=== PATIENT | male | born 1960 | race Caucasian/White ===

== ENCOUNTER 2016-10-10 17:25 | Emergency (ER) | payer OTHER ==
[~2016-10-10] VITALS: Ht 170.2 cm; Wt 88.3 kg
[~2016-10-10 17:25] MED LIST: ACAMPROSATE CA333 MG PO; ACETAMINOP160 MG/51 PO; ATARAX,VISTARIL25 MG PO; AUGMENTIN875 MG PO; GEODON40 MG PO; K-DUR20 MEQ PO; KEFLEX500 MG PO; LEVOTHYROXINE75 MCG PO; LEVOTHYROXINE88 MCG PO; NICOTINE PATCH1 EAC2 TD; NORVASC5 MG PO; PAROXETINE HCL20 MG PO; PAXIL20 MG PO; PAXIL40 MG PO; PRED FORTE100 DROP/5 RIGHT EYE; RISPERDAL1 MG PO; TOBRADEX EYE DRO5 ML RIGHT EYE; XALATAN2.5 ML RIGHT EYE; ZYPREXA PO
[2016-10-10 18:47] LABS: HEMATOCRIT 35.6 % (38.0-50.0); MCH 28.9 PG (29.0-34.0); MCHC 35.1 G/DL (30.0-36.0); MCV 82.4 FL (86-99); MEAN PLAT.VOLUME 9.4 uM^3 (9.0-12.4); PLATELET COUNT 181 K/uL (156-360); RBC DIS.WIDTH-CV 12.9 % (11.8-14.6); RED BLOOD COUNT 4.32 M/uL (4.00-5.50); WHITE BLOOD COUNT 7.4 K/uL (4.1-10.2)
[2016-10-10 18:59] LABS: CHLORIDE 106 mEq/L (99-109); POTASSIUM 3.7 mEq/L (3.7-5.4); SODIUM 139 mEq/L (136-147)
[2016-10-10 19:00] LABS: GLUCOSE 87 mg/dL (70-99)
[2016-10-10 19:02] LABS: ANION GAP 11 MEQ/L (2-14)
[2016-10-10 19:04] LABS: GFR ESTIMATE (CALCULATED) > 59 mL/min/; SERUM ETHYL ALCOHOL 252 mg/dL
[2016-10-10 19:06] LABS: UREA NITROGEN (BUN) 12 mg/dL (9-23)
[2016-10-10 19:07] LABS: SALICYLATE < 5.0 MG/DL (15-30)
[2016-10-10 19:56] LABS: AMPHETAMINE NEGATIVE (500 ng/mL); BARBITURATES NEGATIVE (200 ng/mL); BENZODIAZEPINES NEGATIVE (150 ng/mL); COCAINE NEGATIVE (150 ng/mL); INTERNAL CONTROLS VALID? YES; METHADONE NEGATIVE (200 ng/mL); METHAMPHETAMINE NEGATIVE (500 ng/mL); OPIATES (MORPHINE) NEGATIVE (100 ng/mL); OXYCODONE NEGATIVE (100 ng/mL); PHENCYCLIDINE NEGATIVE (25 ng/mL); PROPOXYPHENE NEGATIVE (300 ng/mL); THC CANNABINOIDS NEGATIVE (50 ng/mL); TRICYCLIC ANTIDEPRESSANTS NEGATIVE (300 ng/mL)
[2016-10-11 01:53] VITALS: BP 121/68
== END 2016-10-11 02:10 | disposition home or self-care (01) ==
LOC: EME 17:25
PROVIDERS: Physician Assistant
DX: F10.129 Alcohol abuse with intoxication, unspecified (principal); Y90.8 Blood alcohol level of 240 mg/100 ml or more; J45.909 Unspecified asthma, uncomplicated; J44.9 Chronic obstructive pulmonary disease, unspecified; F17.200 Nicotine dependence, unspecified, uncomplicated
CPT/HCPCS: 80048; 85027; 90837; 99281; 99285; G0480